=== PATIENT | female | born 1950 | race African-American/Black ===

== ENCOUNTER 2018-02-02 18:08 | Emergency (ER) | payer MEDICAID, MEDICARE ==
[~2018-02-02] VITALS: Ht 154.9 cm; Wt 108.9 kg
[~2018-02-02 18:08] MED LIST: ALBUTEROL SULF8.5 GM INH; AZITHROMYCIN250 MG ORAL; CYCLOBENZAPRINE10 MG ORAL; GUAIFENESIN1200 MG PO; PREDNISONE20 MG ORAL; PROMETHAZINE-D118 ML ORAL; TYLENOL EXTRA500 MG ORAL
[2018-02-02] MEDS ORDERED: Acetaminophen 500mg (ES) tab ORAL ONE (18:30)
--- NOTE | 2018-02-02 18:37 | Emergency Room Report ---
History of Present Illness General Chief Complaint: Pelvic Pain Source: Patient Present Illness HPI 67-year-old female patient presents ER complaining of right hip pain for the past 3 weeks. Patient denies history of acute injury. 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 Reports pain with ambulation, states she has been using a cane to help her walk. Denies history of imaging on right hip. Denies bowel or bladder problems. Denies dysuria, hematuria. Denies chest pain , shortness breath, abdominal pain. Reports has been taking Celoxib for the past 3 days for pain symptoms. Allergies: Coded Allergies: PINEAPPLE (Verified Allergy, Unknown, 02/13/16) Patient History Past Medical History: see triage record Reviewed Nursing Documentation: PMH: Agreed; PSxH: Agreed Nursing Documentation-PMH Past Medical History: No History, Except For Hx Hypertension: Yes Review of Systems All Other Systems: negative except mentioned in HPI Physical Exam Vital Signs Date Time Temp Pulse Resp B/P (MAP) Pulse Ox O2 Delivery O2 Flow Rate FiO2 02/02/18 18:12 98.4 72 20 184/80 99 Room Air 98.4 Sp02 EP Interpretation: reviewed, normal General Appearance: well appearing, no apparent distress, alert, GCS 15, non- toxic Head: normocephalic, atraumatic Eyes: bilateral eye normal inspection, bilateral eye PERRL ENT: hearing grossly normal, normal pharynx, no angioedema, normal voice, uvula midline, moist mucus membranes Neck: full range of motion Respiratory: lungs clear, normal breath sounds, no rhonchi, no respiratory distress, no accessory muscle use, no wheezing, speaking full sentences Cardiovascular #1: regular rate, rhythm, no edema Gastrointestinal: non tender, soft, no mass, non-distended, no guarding, no rebound Musculoskeletal: back normal, digits/nails normal, gait/station normal, normal range of motion, other - no leg length discrepancy, tender - right hip Neurologic: alert, oriented x3, responsive, motor strength/tone normal, SLR negative, sensory intact Psychiatric: mood/affect normal Skin: no rash Medical Decision Making PA Attestation Dr. Chavez is my supervising Physician whom patient management has been discussed with. Diagnostic Impression: Primary Impression: Hip pain ER Course Pt. presents to the ED c/o right hip pain. Ddx considered but are not limited to fracture, sprain, strain, contusion, Osteoarthritis, arthritis, meralgia paresthetica. No erythema, no warmth to touch, no fever, nontoxic appearing, low suspicion for septic joint. Vital signs: are WNL, pt. is afebrile Ordered CT pelvis and pain medication. ER COURSE Provided with Toradol pain medication. Patient declined Tylenol. An CT of the pelvis was ordered, results show no acute fracture, per the [facility] reading. Provided patient with copy of report via [employer], instructed to contact hospital records tomorrow for official report from [facility] radiologist as needed. Advised patient on stretching, exercise, and weight loss. Pain may be related to degenerative changes vs arthritic changes vs nerve impingement. F/u [facility] PCP for further diagnosis and treatment, request MRI. Patient reports hx of taking prednisone for arthritis sx, states has not taken them recently. will not provide to patient at this time, consult venetian blind worker. Patient instructed on RICE method: rest, ice, compression, elevation. Patient instructed to WBAT. Followup with primary care provider. Discuss referral to ortho/pain management/PT as needed. Discuss further imaging with MRI/CT as needed. Informed patient of Tylenol also works as an anti-inflammatory in addition to pain, should take medication for symptoms. Patient reports did not know Tylenol had anti-inflammatory properties, will begin to take at home for symptom relief. Reports pain symptoms improved since arrival to ER. Patient able ambulate independently using her cane. Stable for discharge to home. DISCHARGE: [facility] report reviewed.patient received 30 day supply of tramadol on the third of this month. Informed patient would not provide her with further opioid pain medication, needs to follow-up with primary care provider and venetian blind worker to discuss new treatment for pain. Request follow-up with pain management. Provide patient with contact information for orthopedic urgent care with pain management doctors. will provide patient with Rx for Tylenol and lidocaine patches. Patient reports understanding and agreement to treatment plan. At this time pt. is stable for d/c to home. Patient is resting comfortably, in no acute distress, nontoxic appearing, talking without difficulty. Will provide printed patient care instructions, and any necessary prescriptions. Patient instructed to follow with primary care provider in 3 - 5 days and to request further orthopedic follow-up. Care plan and follow up instructions have been discussed with the patient prior to discharge. Take medications as directed. Patient questions asked and answered. Patient reports understanding and agreement to treatment plan. ER precautions given, patient instructed to return to ER immediately for any new or worsening of symptoms. - Please note that this Emergency Department Report was dictated using [employer] machine operator technology software, occasionally this can lead to erroneous entry secondary to interpretation by the dictation equipment. CT/MRI/US Diagnostic Results CT/MRI/US Diagnostic Results : Imaging Test Ordered: CT pelvis Impression No fractures. Fat containing ventral hernias. Last Vital Signs Date Time Temp Pulse Resp B/P (MAP) Pulse Ox O2 Delivery O2 Flow Rate FiO2 02/02/18 18:12 98.4 72 20 184/80 99 Room Air 98.4 Disposition: HOME, SELF-CARE Condition: Stable Scripts Acetaminophen* (TYLENOL EXTRA STRENGTH*) 500 Mg Tablet 500 MG ORAL Q8H PRN for Prn Headache/Temp > 101, #30 TAB 0 Refills Prov: Bob Armenta 02/02/18 Lidocaine (Lidocaine) 1 Each Adh..patch 700 MG TP DAILY, #7 PATCH Prov: Bob Armenta 02/02/18 Patient Instructions: Hip Pointer, [id number] Additional Instructions: Patient instructed to follow up with primary care provider and discuss further referral to orthopedics. Patient instructed on rest ice and heat. Patient instructed to WBAT. Take medications as directed. Patient questions asked and answered. ER precautions given, patient instructed to return to ER immediately for any new or worsening of symptoms. Bob Armenta February 02, 2018 18:37
[2018-02-02] MEDS ORDERED: Ketorolac 30mg Inj IM ONE (19:00)
[2018-02-02 19:37] VITALS: BP 160/85
[2018-02-02] MEDS ORDERED: TYLENOL EXTRA500 MG ORAL (20:03)
[2018-02-02] MEDS ORDERED: LIDOCAINE700 M1 TP (20:03)
[2018-02-02 20:24] VITALS: BP 160/85
--- NOTE | 2018-02-03 09:25 | Diagnostic Imaging Report ---
Indication: Pelvic pain. Bilateral hip pain Technique: Continuous helical transaxial imaging of the pelvis was obtained from the iliac crest to the pubic symphysis. Coronal 2-D reformats were also obtained. Study obtained in a Siemens sensation [address] Intravenous non-ionic contrast was administered. Total Dose length Product (DLP): 841.[address] Dose Index Volume (CTDIvol): 29.19 mGy Comparison: None Findings: There is an umbilical hernia containing fat. Degenerative changes of the lower lumbar spine demonstrated with vacuum phenomena and facet hypertrophy. Aortoiliac aspirations are present. The appendix appears normal. Normal uterus is not seen. The uterus could be atrophic or there may have been a prior hysterectomy. Correlate clinically. Some irregularity of the lower abdominal wall noted likely postsurgical in nature. There is no acute fracture of the osseous structures visualized on this examination which includes both hips. Some osteophyte formation noted involving the mildly narrowed hip joints bilaterally consistent with osteoarthrosis. Vacuum phenomena within the sacroiliac joints also demonstrated. Small focus of calcification noted at the anterior aspect of the left greater trochanter. This is site of tendinous attachments. The finding may be indicative of a calcific tendinopathy. Correlate clinically. IMPRESSION: No acute pelvic injury identified. Osteoarthrosis of both hips and sacroiliac joints. Degenerative changes of the lower lumbar spine. Calcific tendinopathy suspected at the anterior footprint of the left greater trochanter. Correlate clinically. Incidental intrapelvic findings include small umbilical hernia containing fat, aorta iliac atherosclerotic disease, normal appendix, apparent hysterectomy. [facility] has communicated the preliminary results to the Emergency Department. Their findings are largely concordant with this report. The CT scanner at [facility] is accredited by the [employer] and the scans are performed using dose optimization techniques as appropriate to a performed exam including Automatic Exposure control.
== END 2018-02-02 20:24 | disposition home or self-care (01) ==
LOC: EMR 18:47
DX: M25.551 Pain in right hip (principal); I10 Essential (primary) hypertension
CPT/HCPCS: 72192; 96372; 99284; J1885

== ENCOUNTER 2018-03-21 01:44 | Emergency (ER) | payer MEDICARE ==
[~2018-03-21] VITALS: Ht 165.1 cm; Wt 108.0 kg
[~2018-03-21 01:44] MED LIST changes: +LIDOCAINE700 M1 TP
[2018-03-21] MEDS ORDERED: ATORVASTATIN CA20 MG ORAL (02:01)
[2018-03-21] MEDS ORDERED: TRAMADOL HCL50 MG ORAL (02:01)
[2018-03-21] MEDS ORDERED: FUROSEMIDE40 MG ORAL (02:01)
[2018-03-21] MEDS ORDERED: DIOVAN160 MG ORAL (02:01)
[2018-03-21] MEDS ORDERED: METOPROLOL SUCC25 MG ORAL (02:01)
[2018-03-21] MEDS ORDERED: ASPIR 8181 MG ORAL (02:01)
[2018-03-21] MEDS ORDERED: WELLBUTRIN XL150 MG ORAL (02:01)
[2018-03-21] MEDS ORDERED: VITAMIN D400 INTLU ORAL (02:01)
[2018-03-21] MEDS ORDERED: DILTIAZEM ER300 MG PO (02:01)
[2018-03-21] MEDS ORDERED: LEXAPRO20 MG ORAL (02:01)
[2018-03-21 02:30] VITALS: BP 157/81
[2018-03-21] MEDS ORDERED: oxyCODONE HCL/Acetaminophen 5/325mg ORAL ONE (03:00)
[2018-03-21 03:41] LABS: BASOPHILS % (AUTO) 1.5 % (0.0-2.0); EOSINOPHILS % (AUTO) 4.3 % (0.0-3.0); HEMATOCRIT 35.2 % (37.0-47.0); LYMPHOCYTES % (AUTO) 42.7 % (20.0-45.0); MEAN CORPUSCULAR VOLUME 87 FL (80-99); MONOCYTES % (AUTO) 8.7 % (1.0-10.0); NEUTROPHILS % (AUTO) 42.8 % (45.0-75.0); PLATELET COUNT 191 K/UL (150-450); RED BLOOD COUNT 4.05 M/UL (4.20-5.40); RED CELL DISTRIBUTION WIDTH 12.6 % (11.6-14.8); WHITE BLOOD COUNT 6.1 K/UL (4.8-10.8)
[2018-03-21 03:43] LABS: BILIRUBIN, URINE NEGATIVE (NEGATIVE); COLOR,URINE PALE YELLOW; GLUCOSE, URINE (UA) NEGATIVE (NEGATIVE); KETONES,URINE NEGATIVE (NEGATIVE); LEUKOCYTE ESTERASE ,URINE 2+ (NEGATIVE); NITRITE,URINE NEGATIVE (NEGATIVE); PH,URINE 6 (4.5-8.0); PROTEIN,URINE 1+ (NEGATIVE); UROBILINOGEN,URINE NORMAL MG/DL (0.0-1.0)
[2018-03-21 03:50] LABS: ANION GAP 5 mmol/L (5-15); BLOOD UREA NITROGEN 22 mg/dL (7-18); CARBON DIOXIDE 30 MMOL/L (21-32); CHLORIDE 104 MMOL/L (98-107); CREATININE 1.6 MG/DL (0.55-1.30); POTASSIUM 3.5 MMOL/L (3.5-5.1); SODIUM 139 MMOL/L (136-145)
[2018-03-21 03:53] LABS: INR 0.9 (0.9-1.1)
[2018-03-21 03:55] LABS: ALANINE AMINOTRANSFERASE 22 U/L (12-78); ALBUMIN 3.3 G/DL (3.4-5.0); ALBUMIN/GLOBULIN RATIO 0.8 (1.0-2.7); ALKALINE PHOSPHATASE 105 U/L (46-116); ASPARTATE AMINO TRANSFERASE 21 U/L (15-37); BILIRUBIN,TOTAL 0.2 MG/DL (0.2-1.0); CREATINE KINASE 276 U/L (26-308)
[2018-03-21 04:19] LABS: APPEARANCE,URINE SLIGHTLY CLOUDY
[2018-03-21 04:30] VITALS: BP 142/80
--- NOTE | 2018-03-21 04:40 | Emergency Room Report ---
History of Present Illness General Chief Complaint: Multiple Trauma/Fall Source: Patient Present Illness HPI Patient kicked a suitcase into a 40 pound mirror that fell onto her head. She also had a lot of things hanging on the mirror. No initial loss of consciousness. She tried to stand the mirror up with her right-hand and then it fell again and hit her head a second time which knocked her down. She denies loss of consciousness. Has headache, neck pain, left shoulder pain, chest pain. No medications taken. Pain rated 7/10, throbbing and worse when she uses her L arm. No nausea or vomiting. The patient states that she has renal disease and also has had anemia in the past. No fevers, blood thinners. No dysuria. Allergies: Coded Allergies: PINEAPPLE (Verified Allergy, Unknown, 03/21/18) Patient History Past Medical History: see triage record Social History: Denies: smoking Social History Narrative brought by her son Last Menstrual Period: n/a Reviewed Nursing Documentation: PMH: Agreed; PSxH: Agreed Nursing Documentation-PMH Past Medical History: No History, Except For Hx Hypertension: Yes Review of Systems All Other Systems: negative except mentioned in HPI Physical Exam Vital Signs Date Time Temp Pulse Resp B/P (MAP) Pulse Ox O2 Delivery O2 Flow Rate FiO2 03/21/18 01:51 99.0 78 16 201/95 95 Room Air 99.0 General Appearance: well appearing, no apparent distress, GCS 15 Head: normocephalic, other - tender L top of head Eyes: bilateral eye PERRL, bilateral eye EOMI, bilateral eye conjunctivae pale ENT: hearing grossly normal, normal voice, moist mucus membranes Neck: full range of motion, supple, tender lateral - L side Respiratory: normal breath sounds, no respiratory distress, speaking full sentences, other - chest wall tenderness Cardiovascular #1: regular rate, rhythm Cardiovascular #2: 2+ radial (L) Gastrointestinal: normal inspection, normal bowel sounds, non tender, overweight Genitourinary: no CVA tenderness Musculoskeletal: back normal, digits/nails normal, gait/station normal, normal range of motion, no calf tenderness, other - tender L arm upper Neurologic: alert, 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 parts 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 III-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 nml as tested, motor strength/tone normal, DTRs symmetric, sensory intact, cerebellar normal, normal gait Psychiatric: mood/affect normal Skin: no rash, pallor Medical Decision Making Diagnostic Impression: Primary Impression: Multiple injuries due to trauma Additional Impressions: Head injury Qualified Codes: S09.90XA - Unspecified injury of head, initial encounter Left shoulder strain Qualified Codes: S46.912A - Strain of unspecified muscle, fascia and tendon at shoulder and upper arm level, left arm, initial encounter Chest pain Qualified Codes: R07.9 - Chest pain, unspecified UTI (urinary tract infection) Qualified Codes: N30.00 - Acute cystitis without hematuria Renal insufficiency Anemia Qualified Codes: D64.9 - Anemia, unspecified ER Course Patient presents with head injury and L arm, chest pain post being hit twice by a heavy object. DDx; contusions, bleed, concussion (without LOC), strain amongst others. She is pale and looks very anemic with h/o renal problems. CT head indicated as is x-ray of chest. Treatment with analgesia indicated ( though concern over renal dysfunction). Labs ordered. Analgesia given. CT neg. Xray no fx. Labs with anemia and renal insufficiency. UA with pyuria. Antibiotics begun. Patient improved with treatment with normal neurologic exam. Patient stable for outpatient observation and treatment. Laboratory Tests Test 03/21/18 03:30 White Blood Count 6.1 K/UL (4.8-10.8) Red Blood Count 4.05 M/UL (4.20-5.40) L Hemoglobin 11.0 G/DL (12.0-16.0) L Hematocrit 35.2 % (37.0-47.0) L Mean Corpuscular Volume 87 FL (80-99) Mean Corpuscular Hemoglobin 27.2 PG (27.0-31.0) Mean Corpuscular Hemoglobin Concent 31.4 G/DL (32.0-36.0) L Red Cell Distribution Width 12.6 % (11.6-14.8) Platelet Count 191 K/UL (150-450) Mean Platelet Volume 8.2 FL (6.5-10.1) Neutrophils (%) (Auto) 42.8 % (45.0-75.0) L Lymphocytes (%) (Auto) 42.7 % (20.0-45.0) Monocytes (%) (Auto) 8.7 % (1.0-10.0) Eosinophils (%) (Auto) 4.3 % (0.0-3.0) H Basophils (%) (Auto) 1.5 % (0.0-2.0) Prothrombin Time 9.9 SEC (9.30-11.50) Prothrombin Time INR 0.9 (0.9-1.1) PTT 27 SEC (23-33) Urine Color Pale yellow Urine Appearance Slightly cloudy Urine pH 6 (4.5-8.0) Urine Specific [place] 1.015 (1.005-1.035) Urine Protein 1+ (NEGATIVE) H Urine Glucose (UA) Negative (NEGATIVE) Urine Ketones Negative (NEGATIVE) Urine Occult Blood Negative (NEGATIVE) Urine Nitrite Negative (NEGATIVE) Urine Bilirubin Negative (NEGATIVE) Urine Urobilinogen Normal MG/DL (0.0-1.0) Urine Leukocyte Esterase 2+ (NEGATIVE) H Urine RBC 0-2 /HPF (0 - 2) Urine WBC 30-40 /HPF (0 - 2) H Urine Squamous Epithelial Cells Few /LPF (NONE/OCC) Urine Bacteria Few /HPF (NONE) Sodium Level 139 MMOL/L (136-145) Potassium Level 3.5 MMOL/L (3.5-5.1) Chloride Level 104 MMOL/L (98-107) Carbon Dioxide Level 30 MMOL/L (21-32) Anion Gap 5 mmol/L (5-15) Blood Urea Nitrogen 22 mg/dL (7-18) H Creatinine 1.6 MG/DL (0.55-1.30) H Estimate Glomerular Filtration Rate 38.9 mL/min (>60) Glucose Level 101 MG/DL (74-106) Calcium Level 9.0 MG/DL (8.5-10.1) Total Bilirubin 0.2 MG/DL (0.2-1.0) Aspartate Amino Transferase (AST) 21 U/L (15-37) Alanine Aminotransferase (ALT) 22 U/L (12-78) Alkaline Phosphatase 105 U/L (46-116) Total Creatine Kinase 276 U/L (26-308) Troponin I 0.008 ng/mL (0.000-0.056) Total Protein 7.3 G/DL (6.4-8.2) Albumin 3.3 G/DL (3.4-5.0) L Globulin 4.0 g/dL Albumin/Globulin Ratio 0.8 (1.0-2.7) L EKG Diagnostic Results Rate: normal Rhythm: NSR ST Segments: no acute changes Rhythm Strip Diag. Results EP Interpretation: yes Rhythm: NSR, no PVC's, no ectopy Chest X-Ray Diagnostic Results Chest X-Ray Diagnostic Results : Chest X-Ray Ordered: Yes # of Views/Limited/Complete: 1 View Indication: Chest Pain Interpretation: no consolidation, no effusion, no pneumothorax Impression: No acute disease Electronically Signed by: Electronically signed by Dario Manjarrez MD CT/MRI/US Diagnostic Results CT/MRI/US Diagnostic Results : Imaging Test Ordered: head Impression no bleed, fracture or mass effect Last Vital Signs Date Time Temp Pulse Resp B/P (MAP) Pulse Ox O2 Delivery O2 Flow Rate FiO2 03/21/18 05:05 98.8 81 16 142/80 99 Room Air 98.8 Status: improved Disposition: HOME, SELF-CARE Condition: Improved Scripts Nitrofurantoin Monohyd/M-Cryst* (MACROBID 100 MG*) 100 Mg Capsule 100 MG ORAL EVERY 12 HOURS, #14 CAP Prov: Dario Manjarrez M.D. 03/21/18 Multivitamin/Iron/Folic Acid (One Daily Multivitamin-Iron Tb) 1 Each Tablet 1 EACH PO DAILY, #30 TAB Prov: Dario Manjarrez M.D. 03/21/18 Hydrocodone Bit/Acetaminophen 10-325* (NORCO 10-325*) 1 Each Tablet 1 TAB ORAL Q6H PRN for For Pain, #12 TAB 0 Refills PRN PAIN Prov: Dario Manjarrez M.D. 03/21/18 Referrals: NON PHYSICIAN (PCP) Dario Manjarrez M.D. Mar 21, 2018 04:40
[2018-03-21] MEDS ORDERED: NORCO 10-325 T1 EACH ORAL (04:54)
[2018-03-21] MEDS ORDERED: ONE DAILY MULT1 EAC2 PO (04:54)
[2018-03-21] MEDS ORDERED: NITROFURANTOIN100 M2 ORAL (05:01)
[2018-03-21 05:05] VITALS: BP 142/80
--- NOTE | 2018-03-21 09:43 | Diagnostic Imaging Report ---
Indication: Head trauma. Headache Technique: Contiguous 5 mm thick transaxial imaging of the head obtained in a Siemens Sensation [address] scanner. Soft tissue and bone windows generated. Automatic Exposure Control was utilized. Total Dose length Product (DLP): 1393.[address] Dose Index Volume (CTDIvol): 70.38 mGy Comparison: none Findings: The size and configuration of the cortical sulci, basal cisterns, and ventricles are within normal limits for age. There is minimal, nonspecific bifrontal periventricular low attenuation which at this age may be due to chronic small vessel disease. There is no mass effect, midline shift, or edema identified. There is no evidence of acute hemorrhage or abnormal intra-axial or extra-axial fluid collections. The bones and soft tissues are unremarkable. Impression: No mass effect, edema or acute bleed. [facility] has communicated the preliminary results to the Emergency Department. Their findings are largely concordant with this report. The CT scanner at [facility] is accredited by the [employer] and the scans are performed using dose optimization techniques as appropriate to a performed exam including Automatic Exposure control.
--- NOTE | 2018-03-21 10:11 | Diagnostic Imaging Report ---
Indication: Trauma and chest pain Comparison: 03/01/2016 A single view chest radiograph was obtained. Findings: No definite infiltrate or pulmonary vascular congestion identified. The heart is enlarged. The aorta is mildly enlarged consistent with atherosclerotic vascular disease. Degenerative changes of the thoracic spine noted at multiple levels.. Impression: No acute disease
--- NOTE | 2018-03-21 16:38 | Cardiology Report ---
APPROVED REPORT EKG Measurement Heart [id number] Normal sinus rhythm Septal infarct, age undetermined Abnormal ECG nonspecific t wave abn
== END 2018-03-21 05:05 | disposition home or self-care (01) ==
LOC: EMR 03:00
DX: S09.90XA Unspecified injury of head, initial encounter (principal); S46.912A Strain of unspecified muscle, fascia and tendon at shoulder and upper arm level, left arm, initial encounter; W20.8XXA Other cause of strike by thrown, projected or falling object, initial encounter; Y92.9 Unspecified place or not applicable; I10 Essential (primary) hypertension; R07.9 Chest pain, unspecified; N39.0 Urinary tract infection, site not specified; D64.9 Anemia, unspecified; N28.9 Disorder of kidney and ureter, unspecified
CPT/HCPCS: 36415; 70450; 71045; 80053; 81003; 82550; 84484; 85025; 85610; 85730; 87086; 93005; 99284